=== PATIENT | female | born 1960 | race Caucasian/White ===

== ENCOUNTER 2018-11-26 20:24 | Emergency (ER) | payer MEDICARE, OTHER, MEDICAID ==
[~2018-11-26] VITALS: Ht 167.6 cm; Wt 94.0 kg
[2018-11-26] MEDS ORDERED: NORVASC5 M1 PO (21:06)
[2018-11-26] MEDS ORDERED: NYSTATI1 TOP (21:06)
[2018-11-26] MEDS ORDERED: ASPIRIN 8181 MG PO (21:07)
[2018-11-26] MEDS ORDERED: ATORVASTATIN CA40 MG PO (21:07)
[2018-11-26] MEDS ORDERED: DIAZEPAM5 MG PO (21:08)
[2018-11-26] MEDS ORDERED: DECARA PO (21:08)
[2018-11-26] MEDS ORDERED: DULOXETINE HYDR60 MG PO (21:09)
[2018-11-26] MEDS ORDERED: GLIMEPIRIDE2 MG PO (21:10)
[2018-11-26] MEDS ORDERED: ADVAIR DISKU IN (21:10)
[2018-11-26] MEDS ORDERED: LANTUS100 UNIT/M SC (21:12)
[2018-11-26] MEDS ORDERED: NOVOLOG100 UNIT/M (21:12)
[2018-11-26] MEDS ORDERED: LAMOTRIGINE150 MG PO (21:13)
[2018-11-26] MEDS ORDERED: MELOXICAM7.5 MG PO (21:13)
[2018-11-26] MEDS ORDERED: METFORMIN500 MG PO (21:14)
[2018-11-26] MEDS ORDERED: PROTONIX40 M2 PO (21:15)
[2018-11-26] MEDS ORDERED: OXYCODONE HYDROC5 M1 PO (21:15)
[2018-11-26] MEDS ORDERED: LYRICA75 MG PO (21:16)
[2018-11-26] MEDS ORDERED: RANITIDINE150 M1 PO (21:16)
[2018-11-26] MEDS ORDERED: TIZANIDINE HYDRO4 M1 PO (21:17)
[2018-11-26] MEDS ORDERED: ZONEGRAN100 M1 PO (21:17)
[2018-11-26 21:21] LABS: HEMATOCRIT 35.9 % (37.0-47.0); HEMOGLOBIN 11.9 g/dl (12.0-16.0); IMMATURE GRANULOCYTES 0.3 % (0.0-5.0); MEAN CELL VOLUME 92.1 fL CALC (80.0-100.0); MEAN CORPUSCULAR HGB 30.5 pG CALC (26.0-32.0); MEAN CORPUSCULAR HGB CONC 33.1 g/L CALC (32.0-36.0); NEUT# 4.04 thou/uL (2.00-7.15); RED BLOOD COUNT 3.9 mill/uL (4.20-5.60); RED CELL DISTRI WIDTH 12.7 % (11.5-15.5)
[2018-11-26 21:22] LABS: URINE BILIRUBIN - DIPSTICK NEGATIVE (NEGATIVE); URINE BLOOD DIPSTICK LARGE (NEGATIVE); URINE COLOR YELLOW; URINE GLUCOSE - DIPSTICK 100 mg/dL (NEGATIVE); URINE KETONE NEGATIVE (NEGATIVE); URINE LEUK ESTERASE NEGATIVE (NEGATIVE); URINE NITRITE - DIPSTICK NEGATIVE (Negative); URINE PROTEIN - DIPSTICK NEGATIVE (NEG-TRACE); URINE SPECIFIC GRAVITY >=1.030; URINE UROBILINOGEN - DIPSTICK 0.2 E.U./dL (0.2)
[2018-11-26 21:30] LABS: URINE RBC 25-50 RBC/hpf (0-5); URINE SQUAMOUS EPITHELIAL CELL FEW EPI/hpf (0-FEW)
[2018-11-26 21:40] LABS: ALBUMIN 4.1 g/dL (3.2-5.0); ALKALINE PHOSPHATASE 81 u/l (38-126); ANION GAP 10 (6-22 (CALC)); BILIRUBIN, TOTAL 0.3 mg/dL (0.0-1.4); BUN 15 mg/dL (7-17); BUN/CREATININE RATIO 20 (12-20 (CALC)); CARBON DIOXIDE 27 mmol/l (22-30); CHLORIDE 109 mmol/l (95-108); CREATININE 0.8 mg/dL (0.5-1.0); GFR > 60 ML/MIN (>=60 (CALC)); GFR FOR AFR.AMER. > 60 ML/MIN (>=60 (CALC)); POTASSIUM 4.1 mmol/l (3.5-5.1); SGOT/AST 25 u/l (14-36); SODIUM 142 mmol/l (137-146); TOTAL PROTEIN 6.8 g/dL (6.3-8.2)
[2018-11-26 22:40] VITALS: BP 111/65
== END 2018-11-26 22:40 | disposition home or self-care (01) ==
LOC: ED 20:24
DX: R60.0 Localized edema (principal); Z86.718 Personal history of other venous thrombosis and embolism; F17.210 Nicotine dependence, cigarettes, uncomplicated; I25.2 Old myocardial infarction; I10 Essential (primary) hypertension; K21.9 Gastro-esophageal reflux disease without esophagitis; M79.662 Pain in left lower leg; M79.661 Pain in right lower leg